=== PATIENT | male | born 1990 | race Caucasian/White ===

== ENCOUNTER 2024-07-26 15:43 | Emergency (ER) | payer MEDICAID ==
[~2024-07-26] VITALS: Ht 172.7 cm; Wt 75.0 kg
[2024-07-26 15:50] VITALS: TEMP 36.9; O2SAT 97
[2024-07-26 16:20] VITALS: BP 112/68; PULSE 98; RESP 16; O2SAT 100
== END 2024-07-26 16:20 | disposition home or self-care (01) ==
LOC: ER 15:43
DX: F15.90 Other stimulant use, unspecified, uncomplicated (principal); F32.A Depression, unspecified
CPT/HCPCS: 99283